=== PATIENT | male | born 1955 | race African-American/Black ===

== ENCOUNTER 2017-11-21 09:45 | Inpatient (IN) | payer MEDICARE, MEDICAID ==
[~2017-11-21] VITALS: Ht 185.4 cm; Wt 98.4 kg
[2017-11-21] MEDS ORDERED: BENA10TA10 PO (09:51)
[2017-11-21] MEDS ORDERED: SIMV5TAB53 PO (09:51)
[2017-11-21] MEDS ORDERED: GLIM1TAB2 PO (09:51)
[2017-11-21] MEDS ORDERED: HYDR12.529 PO (09:51)
[2017-11-21] MEDS ORDERED: METF-815 PO (09:51)
[2017-11-21 11:52] LABS: BASOPHILS % 0.5 % (0.0-2.0); CHLORIDE 106 mEq/L (98-107); EOSINOPHILS % 2.1 % (0.0-5.0); HEMATOCRIT. 21.5 % (42.0-52.0); HEMOGLOBIN. 7.3 g/dL (14.0-18.0); LYMPHOCYTES % 13.6 % (20.0-50.0); MEAN CORPUSCULAR HEMOGLOBIN 31.6 pg (28.0-32.0); MEAN CORPUSCULAR VOLUME 92.9 fL (80.0-94.0); MONOCYTES % 4.7 % (2.0-8.0); NEUTROPHILS % 79.1 % (40.0-76.0); PLATELET 194 x1000/uL (130-400); RED BLOOD CELL COUNT 2.31 mill/uL (4.7-6.1); RED CELL DISTRIBUTION WIDTH 13.3 % (11.6-14.6)
[2017-11-21 12:01] LABS: AMMONIA 16 uMol/L (<32)
[2017-11-21] MEDS ORDERED: GLIM4TAB2 MT (12:11)
[2017-11-21] MEDS ORDERED: HYDR25TA MT (12:15)
[2017-11-21] MEDS ORDERED: IBUP-2030 MT (12:19)
[2017-11-21] MEDS ORDERED: MELO-106 MT (12:19)
[2017-11-21] MEDS ORDERED: BENA20TA10 MT (12:19)
[2017-11-21] MEDS ORDERED: METF-416 MT (12:19)
[2017-11-21] MEDS ORDERED: SIMV40TA5 MT (12:19)
[2017-11-21 12:34] LABS: CLARITY URINE CLEAR (CLEAR); COLOR URINE YELLOW (YELLOW); KETONES URINE TRACE (NEGATIVE); LEUKOCYTE ESTERASE URINE TRACE (NEGATIVE); NITRITE URINE NEGATIVE (NEGATIVE); OCCULT BLOOD URINE NEGATIVE (NEGATIVE); PROTEIN URINE NEGATIVE (NEGATIVE); SPECIFIC GRAVITY URINE 1.025 (1.005-1.030); UROBILINOGEN URINE 0.2 E.U./dL (0.2-1.0)
[2017-11-21 13:17] LABS: *BARBITURATES SCREEN URINE NEGATIVE (NEGATIVE); *BENZODIAZEPINES SCREEN URINE NEGATIVE (NEGATIVE)
[2017-11-21 13:18] LABS: *COCAINE SCREEN URINE NEGATIVE (NEGATIVE); CANNABINOID URINE SCREEN NEGATIVE (NEGATIVE); METHADONE URINE SCREEN NEGATIVE (NEGATIVE); OPIATES URINE SCREEN NEGATIVE (NEGATIVE); PHENCYCLIDINE URINE SCREEN NEGATIVE (NEGATIVE)
[2017-11-21 13:20] LABS: *AMPHETAMINES SCREEN URINE NEGATIVE (NEGATIVE)
[2017-11-21] MEDS ORDERED: MORPHINE SULFATE 4 MG/ML CPJ (NOT FOR IM USE) IV ONE (16:45)
[2017-11-21 19:05] VITALS: BP 110/72
[2017-11-21 20:46] VITALS: BP 110/72
[2017-11-21] MEDS ORDERED: IPRATROPIUM/ALBUTEROL 0.5-3(2.5)MG/3ML NEB INH PRN (21:00)
[2017-11-21] MEDS ORDERED: ONDANSETRON HCL 4MG/2ML INJ IV PRN (21:00)
[2017-11-21] MEDS ORDERED: LORAZEPAM 0.5MG TABLET PO PRN (21:00)
[2017-11-21] MEDS ORDERED: DOCUSATE SODIUM 100MG CAPSULE PO PRN (21:00)
[2017-11-21] MEDS ORDERED: ACETAMINOPHEN 325MG TABLET PO PRN (21:00)
[2017-11-21] MEDS ORDERED: CLONIDINE 0.1MG TABLET PO PRN (21:00)
[2017-11-21] MEDS: HYDROCODONE/ACETAMINOPHEN 5/325MG TABLET PO PRN (21:34)
[2017-11-21 22:01] LABS: PHOSPHORUS 2.6 mg/dL (2.5-4.9); TOTAL IRON BINDING CAPACITY 195 ug/dL (250-450)
[2017-11-21 22:04] LABS: CREATINE KINASE 54 IU/L (39-308)
[2017-11-21 22:05] LABS: FOLIC ACID (FOLATE) SERUM 16.4 ng/mL (>5.38)
[2017-11-21 22:06] LABS: CREATINE KINASE MB FRACTION < 1.0 ng/mL (0.5-3.6)
[2017-11-22] VITALS (10 sets, daily range): BP systolic 107–142; BP diastolic 64–74
[2017-11-22] MEDS ORDERED: DEXTROSE 50% WATER 50ML SYRINGE IV PRN (00:45)
[2017-11-22] MEDS: HYDROCODONE/ACETAMINOPHEN 5/325MG TABLET PO PRN ×2 (06:30→12:13)
[2017-11-22] MEDS: BLOOD SUGAR DIAGNOSTIC STRIP TEST SCH ×4 (06:31→20:22)
[2017-11-22 07:42] LABS: BASOPHILS % 0.5 % (0.0-2.0); EOSINOPHILS % 3.7 % (0.0-5.0); LYMPHOCYTES % 23.5 % (20.0-50.0); MEAN CORPUSCULAR HEMOGLOBIN 32.1 pg (28.0-32.0); MEAN CORPUSCULAR VOLUME 93.3 fL (80.0-94.0); MEAN PLATELET VOLUME 9.2 fl (7.4-10.4); MONOCYTES % 8.1 % (2.0-8.0); NEUTROPHILS % 64.2 % (40.0-76.0); PLATELET 177 x1000/uL (130-400); RED BLOOD CELL COUNT 2.03 mill/uL (4.7-6.1); RED CELL DISTRIBUTION WIDTH 13.2 % (11.6-14.6)
[2017-11-22 07:48] LABS: HEMATOCRIT. 18.9 % (42.0-52.0); HEMOGLOBIN. 6.5 g/dL (14.0-18.0)
[2017-11-22] MEDS: INSULIN LISPRO 100 UNITS/ML SUBCUT SCH ×4 (07:50→20:22)
[2017-11-22 08:21] LABS: CHLORIDE 105 mEq/L (98-107)
[2017-11-23] VITALS: BP 126/51
[2017-11-23 04:00] VITALS: BP 110/65
[2017-11-23 06:59] LABS: MEAN CORPUSCULAR HEMOGLOBIN 32.8 pg (28.0-32.0); MEAN CORPUSCULAR VOLUME 92.2 fL (80.0-94.0); PLATELET 145 x1000/uL (130-400); RED BLOOD CELL COUNT 1.96 mill/uL (4.7-6.1); RED CELL DISTRIBUTION WIDTH 13.8 % (11.6-14.6)
[2017-11-23 07:21] LABS: CHLORIDE 109 mEq/L (98-107)
[2017-11-23 07:35] LABS: HEMATOCRIT 18.1 % (42.0-52.0); HEMOGLOBIN 6.4 g/dL (14.0-18.0)
[2017-11-23] MEDS ORDERED: PANTOPRAZOLE SODIUM 40 MG/VIAL IV SCH (09:00)
[2017-11-25 17:06] LABS: BARBITURATE SCREEN Negative ug/mL (Cutoff:0.1); BENZODIAZEPINE SCREEN Negative ng/mL (Cutoff:20); OPIATES SCREEN Negative ng/mL (Cutoff:5); PHENCYCLIDINE SCREEN Negative ng/mL (Cutoff:8)
== END 2017-11-23 06:30 | disposition left against medical advice (07) | DRG 378 ==
LOC: ER 10:28 → EDBEDREQ 15:58 → 6WST 16:09 → EDBEDREQ 16:17 → EDBEDREQTM 16:17 → ENRESERV 16:58
PROVIDERS: ADMIT Internal Medicine; ATTEND Internal Medicine
PROC: 30233N1 Transfusion of Nonautologous Red Blood Cells into Peripheral Vein, Percutaneous Approach (ICD-10-PCS; principal; 2017-11-22)
DX: K92.2 Gastrointestinal hemorrhage, unspecified (principal); E44.1 Mild protein-calorie malnutrition; D64.9 Anemia, unspecified; K92.0 Hematemesis; I10 Essential (primary) hypertension; E78.00 Pure hypercholesterolemia, unspecified; E11.9 Type 2 diabetes mellitus without complications; E78.5 Hyperlipidemia, unspecified; F17.210 Nicotine dependence, cigarettes, uncomplicated; K21.9 Gastro-esophageal reflux disease without esophagitis; Z91.11 Patient's noncompliance with dietary regimen; Z91.14 Patient's other noncompliance with medication regimen; Z91.19 Patient's noncompliance with other medical treatment and regimen; Z68.28 Body mass index [BMI] 28.0-28.9, adult; Z79.84 Long term (current) use of oral hypoglycemic drugs
CPT/HCPCS: 36415; 71045; 80048; 80061; 80305; 80307; 82140; 82550; 82553; 82607; 82728; 82746; 82962; 83036; 83540; 83550; 83735; 83880; 84100; 84443; 84484; 85027; 86850; 86900; 86920; 93005; 93306; 96374; 99285; J1815; J2270; J7050; P9016

== ENCOUNTER 2017-11-24 19:51 | Inpatient (IN) | payer MEDICARE, MEDICAID ==
[~2017-11-24] VITALS: Ht 185.4 cm; Wt 98.9 kg
[~2017-11-24 19:51] MED LIST: BENA10TA10 PO; BENA20TA10 MT; GLIM1TAB2 PO; GLIM4TAB2 MT; HYDR12.529 PO; HYDR25TA MT; IBUP-2030 MT; MELO-106 MT; METF-416 MT; METF-815 PO; SIMV40TA5 MT; SIMV5TAB53 PO
[2017-11-24 22:50] LABS: BASOPHILS % 0.4 % (0.0-2.0); EOSINOPHILS % 6.5 % (0.0-5.0); HEMATOCRIT. 22.2 % (42.0-52.0); HEMOGLOBIN. 7.5 g/dL (14.0-18.0); LYMPHOCYTES % 14.5 % (20.0-50.0); MEAN CORPUSCULAR HEMOGLOBIN 31.8 pg (28.0-32.0); MEAN CORPUSCULAR VOLUME 94.4 fL (80.0-94.0); MEAN PLATELET VOLUME 8.7 fl (7.4-10.4); MONOCYTES % 7.3 % (2.0-8.0); NEUTROPHILS % 71.3 % (40.0-76.0); PLATELET 202 x1000/uL (130-400); RED BLOOD CELL COUNT 2.35 mill/uL (4.7-6.1); RED CELL DISTRIBUTION WIDTH 13.6 % (11.6-14.6)
[2017-11-24 22:56] LABS: CHLORIDE 106 mEq/L (98-107); INR 1.1; PROTHROMBIN TIME 10.7 sec (9.1-11.1)
[2017-11-25] VITALS (11 sets, daily range): BP systolic 100–145; BP diastolic 61–87
[2017-11-25] MEDS ORDERED: PANTOPRAZOLE SODIUM 40 MG/VIAL IV ONE (00:45)
[2017-11-25] MEDS ORDERED: SODIUM CHLORIDE 0.9% 1,000 ML IV ONE (00:45)
[2017-11-25] MEDS ORDERED: IPRATROPIUM/ALBUTEROL 0.5-3(2.5)MG/3ML NEB INH PRN (00:45)
[2017-11-25] MEDS ORDERED: ONDANSETRON HCL 4MG/2ML INJ IV PRN (00:45)
[2017-11-25 03:31] LABS: HEMOGLOBIN 7.2 g/dL (14.0-18.0)
[2017-11-25 03:32] LABS: CHLORIDE 105 mEq/L (98-107)
[2017-11-25 03:41] LABS: CREATINE KINASE MB FRACTION 1.2 ng/mL (0.5-3.6); HEMATOCRIT 20.9 % (42.0-52.0)
[2017-11-25] MEDS ORDERED: DEXTROSE 50% WATER 50ML SYRINGE IV PRN (04:15)
[2017-11-25] MEDS: SODIUM CHLORIDE 0.9% 1,000 ML IV SCH ×2 (04:20→16:34)
[2017-11-25] MEDS: ACETAMINOPHEN 325MG TABLET PO PRN ×2 (04:22→17:42)
[2017-11-25 04:53] LABS: CLARITY URINE CLEAR (CLEAR); COLOR URINE YELLOW (YELLOW); KETONES URINE NEGATIVE (NEGATIVE); LEUKOCYTE ESTERASE URINE NEGATIVE (NEGATIVE); NITRITE URINE NEGATIVE (NEGATIVE); OCCULT BLOOD URINE NEGATIVE (NEGATIVE); PROTEIN URINE NEGATIVE (NEGATIVE); SPECIFIC GRAVITY URINE 1.012 (1.005-1.030)
[2017-11-25] MEDS ORDERED: PANTOPRAZOLE 80 MG in SODIUM CHLORIDE 0.9% 100 ML IV SCH ×4 (05:00)
[2017-11-25 05:13] LABS: *AMPHETAMINES SCREEN URINE NEGATIVE (NEGATIVE); *BARBITURATES SCREEN URINE NEGATIVE (NEGATIVE); *BENZODIAZEPINES SCREEN URINE NEGATIVE (NEGATIVE); *COCAINE SCREEN URINE NEGATIVE (NEGATIVE)
[2017-11-25 05:14] LABS: CANNABINOID URINE SCREEN NEGATIVE (NEGATIVE); METHADONE URINE SCREEN NEGATIVE (NEGATIVE); OPIATES URINE SCREEN NEGATIVE (NEGATIVE); PHENCYCLIDINE URINE SCREEN NEGATIVE (NEGATIVE)
[2017-11-25] MEDS: BLOOD SUGAR DIAGNOSTIC STRIP TEST SCH ×4 (06:19→20:25)
[2017-11-25] MEDS: INSULIN LISPRO 100 UNITS/ML SUBCUT SCH ×4 (06:19→20:25)
[2017-11-25 11:27] LABS: TOTAL IRON BINDING CAPACITY 237 ug/dL (250-450)
[2017-11-25 11:47] LABS: FOLIC ACID (FOLATE) SERUM 10.4 ng/mL (>5.38)
[2017-11-25] MEDS: HYDROCHLOROTHIAZIDE 25MG TABLET PO SCH (14:45)
[2017-11-25] MEDS: BENAZEPRIL 10MG TABLET PO SCH (14:45)
[2017-11-25] MEDS ORDERED: PANTOPRAZOLE SODIUM 40 MG/VIAL IV SCH (17:00)
[2017-11-25] MEDS ORDERED: ATORVASTATIN CALCIUM 40MG TABLET PO SCH (21:00)
[2017-11-26] VITALS: BP 148/82
[2017-11-26 01:59] LABS: HEMATOCRIT 21.7 % (42.0-52.0); HEMOGLOBIN 7.5 g/dL (14.0-18.0)
[2017-11-26 02:11] LABS: CREATINE KINASE 69 IU/L (39-308)
[2017-11-26 02:12] LABS: CREATINE KINASE MB FRACTION < 1.0 ng/mL (0.5-3.6)
[2017-11-26 04:00] VITALS: BP_SYST 133; BP_SYST 153; BP_DIAS 83
[2017-11-26] MEDS: SODIUM CHLORIDE 0.9% 1,000 ML IV SCH (04:54)
[2017-11-26] MEDS: ACETAMINOPHEN 325MG TABLET PO PRN (05:48)
[2017-11-26] MEDS: BLOOD SUGAR DIAGNOSTIC STRIP TEST SCH ×2 (06:07→12:18)
[2017-11-26] MEDS: INSULIN LISPRO 100 UNITS/ML SUBCUT SCH ×2 (06:22→12:15)
[2017-11-26 06:37] LABS: BASOPHILS % 0.4 % (0.0-2.0); EOSINOPHILS % 10.9 % (0.0-5.0); HEMATOCRIT. 23.4 % (42.0-52.0); HEMOGLOBIN. 8.2 g/dL (14.0-18.0); MEAN CORPUSCULAR HEMOGLOBIN 32.2 pg (28.0-32.0); MEAN CORPUSCULAR VOLUME 92.3 fL (80.0-94.0); MONOCYTES % 8.6 % (2.0-8.0); NEUTROPHILS % 60.1 % (40.0-76.0); PLATELET 205 x1000/uL (130-400); RED BLOOD CELL COUNT 2.54 mill/uL (4.7-6.1); RED CELL DISTRIBUTION WIDTH 14.2 % (11.6-14.6)
[2017-11-26 07:14] LABS: CHLORIDE 109 mEq/L (98-107)
[2017-11-26 07:20] LABS: PHOSPHORUS 3.1 mg/dL (2.5-4.9)
[2017-11-26 07:21] LABS: LDL CHOLESTEROL 46 mg/dL (5-100)
[2017-11-26 07:22] LABS: HDL CHOLESTEROL 38 mg/dL (40-59)
[2017-11-26 08:00] VITALS: BP 114/72
[2017-11-26] MEDS: BENAZEPRIL 10MG TABLET PO SCH (09:00)
[2017-11-26] MEDS: HYDROCHLOROTHIAZIDE 25MG TABLET PO SCH (09:00)
[2017-11-26] MEDS ORDERED: SIMETHICONE 40 MG/0.6 ML 30ML ONE (09:47)
[2017-11-26] MEDS ORDERED: MIDAZOLAM HCL 5 MG/5 ML VIAL ONE (10:15)
[2017-11-26] MEDS ORDERED: FENTANYL CITRATE/PF 50MCG/ML 2ML VIAL ONE (10:15)
[2017-11-26] MEDS ORDERED: FENTANYL CITRATE/PF 50MCG/ML 2ML VIAL IV ONE (10:24)
[2017-11-26] MEDS ORDERED: MIDAZOLAM HCL 5 MG/5 ML VIAL IV ONE (10:25)
[2017-11-26] MEDS ORDERED: OMEPRAZOLE 20MG CAPSULE EXTENDED RELEASE PO NR (10:45)
[2017-11-26 12:00] VITALS: BP 141/81
[2017-11-26] MEDS ORDERED: OMEP20CA10 PO (12:33)
[2017-11-26 13:44] VITALS: BP 141/81
[2017-11-26] MEDS ORDERED: SODIUM CHLORIDE 0.9% 10ML VIAL ONE (14:53)
[2017-11-27] MEDS ORDERED: OMEPRAZOLE 20MG CAPSULE EXTENDED RELEASE PO SCH (06:45)
== END 2017-11-26 14:15 | disposition home or self-care (01) | DRG 379 ==
LOC: ER 19:51 → EDBEDREQ 21:37 → 5WST 11-25 00:38 → EDBEDREQ 11-25 00:47 → EDBEDREQTM 11-25 00:47 → EDBEDREQDT 11-25 00:47 → ENRESERV 11-25 01:46
PROVIDERS: ADMIT Internal Medicine; ATTEND Internal Medicine
PROC: 30233N1 Transfusion of Nonautologous Red Blood Cells into Peripheral Vein, Percutaneous Approach (ICD-10-PCS; principal; 2017-11-25)
PROC: 0DB68ZX Excision of Stomach, Via Natural or Artificial Opening Endoscopic, Diagnostic (ICD-10-PCS; 2017-11-26)
DX: K25.4 Chronic or unspecified gastric ulcer with hemorrhage (principal); E11.9 Type 2 diabetes mellitus without complications; E78.00 Pure hypercholesterolemia, unspecified; E78.5 Hyperlipidemia, unspecified; F17.210 Nicotine dependence, cigarettes, uncomplicated; D50.0 Iron deficiency anemia secondary to blood loss (chronic); I10 Essential (primary) hypertension; R74.8 Abnormal levels of other serum enzymes; K21.9 Gastro-esophageal reflux disease without esophagitis; K44.9 Diaphragmatic hernia without obstruction or gangrene; Z79.84 Long term (current) use of oral hypoglycemic drugs; Z88.0 Allergy status to penicillin; Z88.6 Allergy status to analgesic agent; Z79.899 Other long term (current) drug therapy; Z87.440 Personal history of urinary (tract) infections
CPT/HCPCS: 36415; 71045; 80048; 80061; 80305; 82270; 82550; 82553; 82607; 82728; 82746; 82962; 83540; 83550; 83735; 84100; 84443; 84484; 85014; 85018; 85044; 86677; 86850; 86900; 86920; 88305; 88313; 93005; 93880; 93970; 99291; A4216; C9113; J2250; J3010; J7030; J7050; P9016

== ENCOUNTER 2017-12-01 10:19 | Emergency (ER) | payer MEDICAID, MEDICARE ==
[~2017-12-01] VITALS: Ht 170.2 cm; Wt 84.0 kg
[~2017-12-01 10:19] MED LIST changes: -BENA10TA10 PO; -GLIM1TAB2 PO; -HYDR12.529 PO; -IBUP-2030 MT; -MELO-106 MT; -METF-815 PO; +OMEP20CA10 PO; -SIMV5TAB53 PO
[2017-12-01 13:18] LABS: BASOPHILS % 0.4 % (0.0-2.0); EOSINOPHILS % 5.7 % (0.0-5.0); HEMATOCRIT. 25.6 % (42.0-52.0); HEMOGLOBIN. 8.8 g/dL (14.0-18.0); MEAN CORPUSCULAR HEMOGLOBIN 31.3 pg (28.0-32.0); MEAN CORPUSCULAR VOLUME 91.4 fL (80.0-94.0); MEAN PLATELET VOLUME 8.2 fl (7.4-10.4); MONOCYTES % 7.7 % (2.0-8.0); NEUTROPHILS % 65.2 % (40.0-76.0); PLATELET 293 x1000/uL (130-400); RED BLOOD CELL COUNT 2.81 mill/uL (4.7-6.1); RED CELL DISTRIBUTION WIDTH 13.9 % (11.6-14.6)
[2017-12-01 13:19] LABS: CHLORIDE 107 mEq/L (98-107)
[2017-12-01 13:20] LABS: INR 1.1; PROTHROMBIN TIME 10.7 sec (9.1-11.1)
[2017-12-01 15:07] VITALS: BP 129/72
== END 2017-12-01 15:08 | disposition home or self-care (01) ==
LOC: ER 10:19
DX: R51 Headache (principal); D64.9 Anemia, unspecified; E11.9 Type 2 diabetes mellitus without complications; I10 Essential (primary) hypertension; Z79.84 Long term (current) use of oral hypoglycemic drugs; Z87.11 Personal history of peptic ulcer disease; Z88.0 Allergy status to penicillin; Z88.6 Allergy status to analgesic agent; Z98.890 Other specified postprocedural states
CPT/HCPCS: 36415; 82962; 85044; 86850; 86900; 93005; 99285